=== PATIENT | female | born 1935 | race Caucasian/White ===

== ENCOUNTER → 2019-05-26 | Outpatient (CLI) | payer OTHER | END | disposition home or self-care (01) | LOC: MI 08:42 | PROC: B030ZZZ Magnetic Resonance Imaging (MRI) of Brain (ICD-10-PCS; principal; 2019-05-26) | DX: R46.89 Other symptoms and signs involving appearance and behavior (principal); R40.4 Transient alteration of awareness | CPT/HCPCS: A9577 ==

== ENCOUNTER 2019-11-14 07:57 | Emergency (ER) | payer OTHER ==
[~2019-11-14] VITALS: Ht 152.4 cm; Wt 44.5 kg
[2019-11-14 08:07] VITALS: Ht 152.4 cm; Wt 44.5 kg
[2019-11-14 09:02] LABS: BASOPHIL % 0.2 % (0-2); PLATELET COUNT 174 x10^3mcL (130-400); RED CELL DISTRIBUTION WIDTH 14.3 % (11.5-14.5)
[2019-11-14 09:31] LABS: ALBUMIN 3.7 g/dL (3.4-5.0); ALKALINE PHOSPHATASE 56 U/L (46-116); ALT/SGPT 54 U/L (14-59); AST/SGOT 41 U/L (15-37); BILIRUBIN TOTAL 0.8 mg/dL (0.20-1.00); CHLORIDE SERUM 104 mmol/L (98-107); CHOLESTEROL 186 mg/dL (<200); CREATININE SERUM 0.8 mg/dL (0.6-1.0); GLUCOSE SERUM 117 mg/dL (74-106); LIPASE 335 IU/L (73-393); MAGNESIUM 2.1 mg/dL (1.8-2.4); SODIUM SERUM 142 mmol/L (136-145); T4(THYROXINE) 8.8 ug/dL (4.7-13.3); TOTAL PROTEIN, SERUM 7.1 g/dL (6.4-8.2)
[2019-11-14 09:34] LABS: HDL CHOLESTEROL 89 mg/dL (40-60)
[2019-11-14 09:44] LABS: CALCIUM 9.1 mg/dL (8.5-10.1)
[2019-11-14 10:45] LABS: UA SPECIFIC GRAVITY 1.025 (1.005-1.035); microscopic required? YES; urine erythrocyte TRACE (NEGATIVE)
[2019-11-14 11:18] LABS: AMPHETAMINE QUAL UR NONE DETECTED (See below)
[2019-11-14 13:09] VITALS: BP 139/64
== END 2019-11-14 13:09 | disposition left against medical advice (07) ==
LOC: ED 07:57 → DU 12:04 → ED 12:04
PROVIDERS: Emergency Medicine
DX: S61.217A Laceration without foreign body of left little finger without damage to nail, initial encounter (principal); J44.1 Chronic obstructive pulmonary disease with (acute) exacerbation; N39.0 Urinary tract infection, site not specified; E86.0 Dehydration; F03.90 Unspecified dementia, unspecified severity, without behavioral disturbance, psychotic disturbance, mood disturbance, and anxiety; W06.XXXA Fall from bed, initial encounter; Y93.89 Activity, other specified; Y92.89 Other specified places as the place of occurrence of the external cause; Y99.8 Other external cause status
CPT/HCPCS: 36600; 83880; 87804; 90715; 94150; G0480; J0696; J2001; J2930; J7613; J7644; Q0092

== ENCOUNTER 2019-11-18 15:38 | Inpatient (IN) | payer OTHER ==
[~2019-11-18] VITALS: Ht 154.9 cm; Wt 45.8 kg
[2019-11-18 15:47] VITALS: Ht 154.9 cm; Wt 45.8 kg
[2019-11-18 16:30] LABS: BASOPHIL % 0.3 % (0-2); PLATELET COUNT 205 x10^3mcL (130-400); RED CELL DISTRIBUTION WIDTH 14.7 % (11.5-14.5)
[2019-11-18 16:33] LABS: CALCIUM 8.5 mg/dL (8.5-10.1); CARBON DIOXIDE 35.4 mmol/L (21-32); CHLORIDE SERUM 104 mmol/L (98-107); CREATININE SERUM 0.8 mg/dL (0.6-1.0); GLUCOSE SERUM 106 mg/dL (74-106); POTASSIUM SERUM 4.4 mmol/L (3.5-5.1); SODIUM SERUM 142 mmol/L (136-145)
[2019-11-18 16:38] LABS: ALKALINE PHOSPHATASE 67 U/L (46-116); ALT/SGPT 50 U/L (14-59); AST/SGOT 30 U/L (15-37); BILIRUBIN TOTAL 0.5 mg/dL (0.20-1.00); TOTAL PROTEIN, SERUM 6.8 g/dL (6.4-8.2)
[2019-11-18 16:59] LABS: ALBUMIN 3.3 g/dL (3.4-5.0)
[2019-11-18] MEDS ORDERED: ZOLOFT50 MG PO (20:21)
[2019-11-18] MEDS ORDERED: ARICEPT10 MG PO (20:24)
[2019-11-18] MEDS ORDERED: KEFLEX500 M1 PO (20:26)
[2019-11-18 20:54] VITALS: BP 159/52
[2019-11-18 22:34] LABS: UA SPECIFIC GRAVITY >=1.030 (1.005-1.035); microscopic required? YES; urine erythrocyte 1+ (NEGATIVE)
[2019-11-19 05:08] VITALS: BP 138/70
[2019-11-19 08:59] VITALS: BP 134/71
[2019-11-19 12:05] VITALS: BP 130/61
[2019-11-19 17:18] VITALS: BP 134/65
[2019-11-19 17:44] LABS: PLATELET COUNT 222 x10^3mcL (130-400)
[2019-11-19 17:45] LABS: BASOPHIL % 0 % (0-2); RED CELL DISTRIBUTION WIDTH 14.6 % (11.5-14.5)
[2019-11-19 17:56] LABS: CALCIUM 8.8 mg/dL (8.5-10.1); CARBON DIOXIDE 33.3 mmol/L (21-32); CHLORIDE SERUM 103 mmol/L (98-107); CREATININE SERUM 0.9 mg/dL (0.6-1.0); GLUCOSE SERUM 236 mg/dL (74-106); POTASSIUM SERUM 4.5 mmol/L (3.5-5.1); SODIUM SERUM 142 mmol/L (136-145)
[2019-11-19 20:49] VITALS: BP 103/52
[2019-11-20 05:33] VITALS: BP 138/65
[2019-11-20 08:28] VITALS: BP 167/63
[2019-11-20 16:30] VITALS: BP 115/87
[2019-11-21 05:26] VITALS: BP 146/59
[2019-11-21 09:05] VITALS: BP 152/70
[2019-11-21] MEDS ORDERED: LEVAQUIN500 M1 PO (11:40)
[2019-11-21] MEDS ORDERED: DELTASONE20 MG PO (11:41)
[2019-11-21 17:13] VITALS: BP 151/66
[2019-11-21 21:10] VITALS: BP 140/58
[2019-11-22 05:38] VITALS: BP 151/77
[2019-11-22 08:07] VITALS: BP 139/73
[2019-11-22 12:36] VITALS: BP 134/55
[2019-11-22 17:36] VITALS: BP 154/71
== END 2019-11-22 18:52 | DRG 189 ==
LOC: ED 15:38 → MU 17:24 → DU 17:24 → MU 19:27 → DU 20:54 → MU 11-20 13:55
PROVIDERS: Emergency Medicine; Internal Medicine Pulmonary Disease; ADMIT Hospitalist
DX: J96.21 Acute and chronic respiratory failure with hypoxia (principal); J44.1 Chronic obstructive pulmonary disease with (acute) exacerbation; I73.9 Peripheral vascular disease, unspecified; G62.9 Polyneuropathy, unspecified; F03.90 Unspecified dementia, unspecified severity, without behavioral disturbance, psychotic disturbance, mood disturbance, and anxiety; I50.9 Heart failure, unspecified; F41.9 Anxiety disorder, unspecified; F32.9 Major depressive disorder, single episode, unspecified; Z87.891 Personal history of nicotine dependence; Z87.440 Personal history of urinary (tract) infections; Z79.899 Other long term (current) drug therapy
CPT/HCPCS: 36600; 83880; 97116-GP; 97530-GP; G0378; J1644; J1956; J2920; J2930; J3475; J7030; J7050; J7613; J7644; Q0092